=== PATIENT | female | born 1995 | race Caucasian/White ===

== ENCOUNTER 2017-04-05 11:34 | Day surgery (SDC) | payer OTHER ==
[2017-04-05] MEDS ORDERED: LIDOCAINE 1% 300 MG/30 ML SDV SC ONE (12:30)
--- NOTE | 2017-04-05 12:50 | PDGENHP ---
History & Physical Chief Complaint: Pt is not having any further dizziness related to arrhythmia. All arrhythmi History of Present Illness: Complex medical prob Pertinent Past, Social, Family History: None Cardiorespiratory Assessment: Normal
--- NOTE | 2017-04-05 12:50 | PDPROPOC ---
Sedation Plan of Care Sedation Plan of Care: mental status noted ASA Classification: ASA 3 Mallampati Score: Class 3 Mallampati Reference Image: Patient passed 3-3-2 rule?: Yes
--- NOTE | 2017-04-07 13:03 | EPPROC ---
Electrophysiology Procedure Note: Procedure: LINQ implant Indication: No arrhythmias noted during pt symptoms. Procedure: Parts prepared and draped. LA given. Incision placed. Subcut tissue dissected. Despite multiple attempts the LINQ could not be easily extracted and hence distal pressure applied by advertising assistant nurse, incision extended minimally. Then LINQ was explanted.4-0 vicryl suture placed since pt did not want to return for staple removal. Dry sterile dressing was placed. Conclusion: Successful LINQ explant.
== END 2017-04-05 13:42 | disposition home or self-care (01) ==
LOC: FCATH 11:34
PROVIDERS: ATTEND Internal Medicine Cardiovascular Disease
PROC: 0JPT02Z Removal of Monitoring Device from Trunk Subcutaneous Tissue and Fascia, Open Approach (ICD-10-PCS; principal; 2017-04-05)
DX: Z45.09 Encounter for adjustment and management of other cardiac device (principal); R55 Syncope and collapse